=== PATIENT | male | born 2000 | race Caucasian/White ===

== ENCOUNTER 2023-09-24 20:07 | Emergency (ER) | payer MEDICAID, OTHER ==
[~2023-09-24] VITALS: Ht 180.3 cm; Wt 78.0 kg
[2023-09-24 20:27] VITALS: O2SAT 99
[2023-09-24] MEDS ORDERED: IBUP-2029 MT (22:59)
[2023-09-24] MEDS: IBUPROFEN 600MG TABLET PO ONE (23:10)
[2023-09-24 23:16] VITALS: BP 138/88; PULSE 71; RESP 16; TEMP 98.9
== END 2023-09-24 23:17 | disposition home or self-care (01) ==
LOC: ER 20:07
DX: M54.2 Cervicalgia (principal); Z98.890 Other specified postprocedural states
CPT/HCPCS: 72050; 99283